=== PATIENT | male | born 1995 | race Caucasian/White ===

== ENCOUNTER 2020-07-18 14:58 | Emergency (ER) | payer OTHER ==
[2020-07-18] MEDS ORDERED: Sodium Chloride 0.9% 10 ML Syringe FLUSH PRN (15:09)
--- NOTE | 2020-07-18 15:11 | EDM.PDOC ---
ED HPI GENERAL MEDICAL PROBLEM - General Stated Complaint: ALLERGIC REACTION Time Seen by Provider: 07/18/20 15:10 Source of Information: Reports: Patient History Limitations: Reports: No Limitations - History of Present Illness INITIAL COMMENTS - FREE TEXT/NARRATIVE: Patient comes emergency department today from home with concerns of what he feels is an allergic reaction. Over the past 2 to 3 days he has had severe itching and tingling primarily on the dorsal aspect of his bilateral hands on the more lateral surfaces. He has not had any new foods detergents soaps or change in close. He has no other rash on his body other than on his hands and his forearms. He has no shortness of breath or difficulty breathing. No cough or congestion. No salivation or drooling. No globus sensation. He also has the same irritation on his nose. This is gotten worse over the past couple of days since he has been going to a gym where he has been using the hot tub as well he is unsure if this caused it or for just happened at a similar time period. He has tried some topical aloe Solarcaine without improvement. He has never had any reaction like this before. The intense burning and itching he just cannot take anymore. He has not tried any Benadryl for it. NO COVID exposure no COVID symptoms. - Related Data Allergies Allergy/AdvReac Type Severity Reaction Status Date / Time No Known Allergies Allergy Verified 07/18/20 16:33 Home Meds: Home Meds Cariprazine HCl [Vraylar] 6 mg PO DAILY 07/18/20 [History] Doxycycline [Doxycycline Monohydrate] 100 mg PO BID 07/18/20 [History] [place] Carbonate [Lithobid] 900 mg PO BEDTIME 07/18/20 [History] atoMOXetine HCl [Strattera] 100 mg PO DAILY 07/18/20 [History] predniSONE 40 mg PO DAILY #10 tab 07/18/20 [Rx] traZODone HCl [Trazodone HCl] 100 mg PO BEDTIME PRN 07/18/20 [History] ED ROS ALLERGIC REACTION - Review of Systems Review Of Systems: Comprehensive ROS is negative, except as noted in HPI. ED EXAM GENERAL NO PERIP PULSE - Physical Exam Exam: See Below Exam Limited By: No Limitations General Appearance: Alert, WD/WN, No Apparent Distress Eye Exam: Bilateral Eye: EOMI, PERRL Ears: Normal External Exam Nose: Normal Inspection Throat/Mouth: Normal Inspection, Normal Lips, Normal Teeth, Normal Gums, Normal Oropharynx, Normal Voice, No Airway Compromise Head: Atraumatic, Normocephalic Neck: Normal Inspection, Supple, Non-Tender, Full Range of Motion Respiratory/Chest: No Respiratory Distress, Lungs Clear, Normal Breath Sounds, No Accessory Muscle Use, Chest Non-Tender Cardiovascular: Normal Peripheral Pulses, Regular Rate, Rhythm GI/Abdominal: Normal Bowel Sounds, Soft, Non-Tender (Male) Exam: Deferred Rectal (Males) Exam: Deferred Back Exam: Normal Inspection, Full Range of Motion Extremities: Redness (On the bilateral dorsal aspects of his hands primarily the thumb and second and third finger there is an area of superficial redness erythema that extends up on the lateral aspect of the dorsal forearm to about the mid arm. It is not tender. There is some excoriation to it. This is equal bilaterally. There is no exudate no breaks in the skin. There is no hives. The rest of the skin examination throughout the body shows no other rash irritation or hives other than this very similar rash on the bridge of the nose. Minimally erythematous but it is not infectious appearing. This really looks more like a contact or irritation of the skin itself.) Neurological: Alert, Oriented, Normal Cognition, No Motor/Sensory Deficits Psychiatric: Normal Affect, Normal Mood Skin Exam: Warm, Dry, Intact, Normal Color. No: No Rash (See above) Course - Vital Signs Last Recorded V/S: Last Vital Signs Temp 98.3 F 07/18/20 15:00 Pulse 105 H 07/18/20 15:00 Resp 18 07/18/20 15:00 BP 143/83 H 07/18/20 15:00 Pulse Ox 100 07/18/20 15:00 - Orders/Labs/Meds Orders: Active Orders 24 hr Category Date Time Status Peripheral IV Insertion Adult [OM.PC] Stat Oth 07/18/20 15:09 Ordered Meds: Medications Discontinued Medications Generic Name Dose Route Start Last Admin Trade Name Freq PRN Reason Stop Dose Admin Diphenhydramine HCl 50 mg 07/18/20 15:09 07/18/20 15:23 Benadryl IVPUSH 07/18/20 15:10 50 mg ONETIME ONE Administration Famotidine 20 mg 07/18/20 15:10 07/18/20 15:30 Pepcid IVPUSH 07/18/20 15:11 Not Given ONETIME ONE Methylprednisolone Sodium Succinate 125 mg 07/18/20 15:09 07/18/20 15:23 Solu-Medrol IVPUSH 07/18/20 15:10 125 mg ONETIME ONE Administration Sodium Chloride 10 ml 07/18/20 15:09 Saline Flush FLUSH ASDIRECTED PRN Keep Vein Open - Re-Assessments/Exams Free Text/Narrative Re-Assessment/Exam: 07/18/20 17:37 As this could possibly be an allergic reaction the patient was given Benadryl and Solu-Medrol IV without much improvement. I really think that this is more of a contact dermatitis or irritation of the skin does not appear infectious as it is quite confluent and there is no hives. Looks more like dry irritated skin. We will discharge him home on prednisone as well as topical hydrocortisone which will help with hydration as well. I suggesting out of the hot tub is not improving over the next couple of days recheck especially if he is becoming short of breath develops any hives or difficulty swallowing or breathing. He is understanding this and comfortable with this plan. His questions are answered. Departure - Departure Time of Disposition: 16:04 Disposition: Home, Self-Care 01 Clinical Impression: Dermatitis - Discharge Information Prescriptions: predniSONE 40 mg PO DAILY #10 tab Instructions: Atopic Dermatitis Referrals: PCP,Not In Area [Primary Care Provider] - Additional Instructions: Prednisone 40mg a day for the next 5 days. RX to [facility]. OTC Hydrocortisone cream 4 times a day. Make sure you are hydrating our skin as well. Benadryl as needed for continued itching, may not help as much as hydration and the Hydrocortisone cream but an option. Return to the ED if new or worsening symptoms. Follow up with PCP in the next 4=6 days if not improving sooner if worse. Sepsis Event Note (ED) - Focused Exam Vital Signs: Vital Signs Temp Pulse Resp BP Pulse Ox 07/18/20 15:00 98.3 F 105 H 18 143/83 H 100 - My Orders Last 24 Hours: My Active Orders 07/18/20 15:09 Peripheral IV Insertion Adult [OM.PC] Stat - Assessment/Plan Last 24 Hours: My Active Orders 10/10/20 15:09 Peripheral IV Insertion Adult [OM.PC] Stat
[2020-07-18] MEDS: methylPREDNISolone Sodium Succinate 125 MG/2 ML SDV IVPUSH ONE (15:23)
[2020-07-18] MEDS: diphenhydrAMINE 50 MG/ML SDV IVPUSH ONE (15:23)
[2020-07-18] MEDS: Famotidine 20 MG/2 ML SDV IVPUSH ONE (15:30)
== END 2020-07-18 16:19 | disposition home or self-care (01) ==
LOC: VM.ED 14:58
DX: L30.9 Dermatitis, unspecified (principal)
CPT/HCPCS: 96374; 96375; 99283; 99283-25; J1200; J2930

== ENCOUNTER 2020-07-23 17:37 | Emergency (ER) | payer OTHER ==
--- NOTE | 2020-07-23 17:59 | EDM.PDOC ---
ED HPI GENERAL MEDICAL PROBLEM - General Stated Complaint: POSSIBLE SHINGLES Time Seen by Provider: 07/23/20 17:45 Source of Information: Reports: Patient History Limitations: Reports: No Limitations - History of Present Illness INITIAL COMMENTS - FREE TEXT/NARRATIVE: Patient comes emergency department for a second time with concerns of a rash on his bilateral hands. I saw this patient just a couple of days ago where he had a bilateral rash on his hands that extended up to his forearms I treated him with topicals [id number] steroids as well as oral steroids. There was a concern that this was an irritation from the hot tub that he just started going to no other exposure change in medications or detergents. Today he went to the pharmacy to see if he can get some lotion for the rash on his hands and the pharmacist was concerned for shingles so she sent him immediately to the emergency department to be emergently evaluated for his concern of emergent shingles. Patient states that the rash is somewhat gotten better. The itching is still there but it is improved. He has had no difficulty breathing cough congestion shortness of breath swelling in his throat. No drooling. He has no pain to the area in his hands. The rash is bilateral. - Related Data Allergies Allergy/AdvReac Type Severity Reaction Status Date / Time No Known Allergies Allergy Verified 07/23/20 17:54 Home Meds: Home Meds Cariprazine HCl [Vraylar] 6 mg PO DAILY 07/18/20 [History] Doxycycline [Doxycycline Monohydrate] 100 mg PO BID 07/18/20 [History] [place] Carbonate [Lithobid] 900 mg PO BEDTIME 07/18/20 [History] atoMOXetine HCl [Strattera] 100 mg PO DAILY 07/18/20 [History] predniSONE 40 mg PO DAILY #10 tab 07/18/20 [Rx] traZODone HCl [Trazodone HCl] 100 mg PO BEDTIME PRN 07/18/20 [History] Triamcinolone Acetonide [Triamcinolone Acetonide 0.5% Oint] 15 gm .XX TID #1 tube 07/23/20 [Rx] Social & Family History - Family History Family Medical History: Noncontributory - Caffeine Use Caffeine Use: Reports: None ED ROS GENERAL - Review of Systems Review Of Systems: Comprehensive ROS is negative, except as noted in HPI. ED EXAM, SKIN/RASH Exam: See Below Exam Limited By: No Limitations General Appearance: Alert, WD/WN, No Apparent Distress Respiratory/Chest: No Respiratory Distress, Lungs Clear, Normal Breath Sounds, No Accessory Muscle Use, Chest Non-Tender Cardiovascular: Normal Peripheral Pulses, Regular Rate, Rhythm GI/Abdominal: Normal Bowel Sounds, Soft Back Exam: Normal Inspection Extremities: No: Normal Inspection (Hands on the thumb second third finger the bilateral hands he has back to about the wrist some redness macular type rash with some excoriation and some crusting. This is markedly improved than when I saw him just a couple of days ago. This redness had extended all the way up to his antecubital fossa bilaterally. It is less erythematous in color today than it was a couple of days ago. There is no exudate. There is no fluctuance. There is no pustules or other kinds of lesions concerning for infectious or shingles.) Course - Vital Signs Last Recorded V/S: Last Vital Signs Temp 98.2 F 07/23/20 17:42 Pulse 108 H 07/23/20 17:42 Resp 18 07/23/20 17:42 BP 117/74 07/23/20 17:42 Pulse Ox 100 07/23/20 17:42 - Re-Assessments/Exams Free Text/Narrative Re-Assessment/Exam: 07/23/20 18:14 Explained to the patient that the rash really appears quite a bit better and improving. This is really the presentation still of a dermatitis type inflammation especially along the aspect of the hand. Some topical triamcinolone cream and some hydration to see if this continues to improve. If not he needs to see a care provider. He is understanding this questions are answered. Departure - Departure Time of Disposition: 17:45 Disposition: Home, Self-Care 01 Clinical Impression: Dermatitis - Discharge Information Prescriptions: Triamcinolone Acetonide [Triamcinolone Acetonide 0.5% Oint] 15 gm .XX TID #1 tube Referrals: PCP,Not In Area [Primary Care Provider] - Forms: ED Department Discharge Additional Instructions: The rash is much improved then the previous visit. Continue with the previous therapy. Add Vanicream or Eucerin Cream as well. Stop the hydrocortisone and use Triamcinolone apply 3-4 times daily until resolved. RX sent to [facility]. If not resolved after a week recheck with PCP. Sepsis Event Note (ED) - Focused Exam Vital Signs: Vital Signs Temp Pulse Resp BP Pulse Ox 07/23/20 17:42 98.2 F 108 H 18 117/74 100
== END 2020-07-23 17:52 | disposition home or self-care (01) ==
LOC: VM.ED 17:37
DX: L30.9 Dermatitis, unspecified (principal); Z79.899 Other long term (current) drug therapy
CPT/HCPCS: 99282; 99283